=== PATIENT | female | born 2000 | race Hispanic/Latino ===

== ENCOUNTER 2020-08-17 12:24 | Emergency (ER) | payer OTHER ==
[~2020-08-17] VITALS: Ht 157.5 cm; Wt 70.5 kg
[2020-08-17 17:28] LABS: HEMATOCRIT 42.4 % (36.0-47.0); HEMOGLOBIN 14.4 g/dl (12.0-15.5); MEAN CORPUSCULAR VOLUME 94.2 fl (80.0-96.0); PLATELET COUNT, AUTOMATED 305 10^3/uL (150-450); WHITE BLOOD COUNT 8.6 10^3/uL (4.0-10.0)
[2020-08-17 17:48] LABS: HCG, SERUM QUALITATIVE NEGATIVE (NEGATIVE)
[2020-08-17 17:58] LABS: AMPHETAMINES LEVEL URINE NEGATIVE (NEGATIVE); BARBITURATES URINE NEGATIVE (NEGATIVE); BENZODIAZEPINES URINE NEGATIVE (NEGATIVE); CANNABINOIDS URINE NEGATIVE (NEGATIVE); COCAINE METABOLITE URINE NEGATIVE (NEGATIVE); METHADONE URINE NEGATIVE (NEGATIVE); OPIATES URINE NEGATIVE (NEGATIVE); PHENCYCLIDINE URINE NEGATIVE (NEGATIVE)
[2020-08-17 18:00] LABS: RSV AMPLIFICATION NEGATIVE (NEGATIVE)
[2020-08-17 18:45] LABS: ACETAMINOPHEN LEVEL < 2.0 UG/ML (10.0-30.0); ALBUMIN 4.1 GM/DL (3.2-5.2); ALT/SGPT 30 U/L (12-78); BILIRUBIN,DIRECT 0.1 MG/DL (0.0-0.2); BILIRUBIN,TOTAL 0.3 MG/DL (0.2-1.0); BLOOD UREA NITROGEN 9 MG/DL (7-18); CARBON DIOXIDE LEVEL 25 MEQ/L (21-32); CHLORIDE LEVEL 108 MEQ/L (98-107); CREATININE FOR GFR 0.73 MG/DL (0.55-1.30); ETHYL ALCOHOL (ETHANOL) < 0.003 % (0.000-0.010); GLUCOSE, FASTING 89 MG/DL (70-100); SALICYLATE LEVEL < 1.7 MG/DL (5.0-30.0); SODIUM LEVEL 141 MEQ/L (136-145)
[2020-08-17 19:19] VITALS: BP 129/67
== END 2020-08-17 19:15 | disposition home or self-care (01) ==
LOC: M ED 12:24
DX: F32.9 Major depressive disorder, single episode, unspecified (principal); F43.10 Post-traumatic stress disorder, unspecified; F41.9 Anxiety disorder, unspecified

== ENCOUNTER 2021-01-04 12:06 | Emergency (ER) | payer OTHER ==
[~2021-01-04] VITALS: Ht 157.5 cm; Wt 74.5 kg
[2021-01-04] MEDS ORDERED: NEXP1IMP SC (15:01)
[2021-01-04 15:06] LABS: BASO # 0.1 10^3/uL (0.0-0.2); BASO % 0.5 % (0.0-1.0); EOS # 0.1 10^3/uL (0.0-0.5); EOS % 0.8 % (0.0-3.0); HEMATOCRIT 44.2 % (36.0-47.0); HEMOGLOBIN 14.7 g/dl (12.0-15.5); LYMPH # 2.2 10^3/uL (1.5-5.0); LYMPH % 22.1 % (24.0-44.0); MEAN CORPUSCULAR HEMOGLOBIN 31.7 pg (27.0-33.0); MEAN CORPUSCULAR HGB CONC 33.3 g/dl (32.0-36.5); MEAN CORPUSCULAR VOLUME 95.3 fl (80.0-96.0); MONO # 0.6 10^3/uL (0.0-0.8); MONO % 5.9 % (2.0-8.0); NEUTROPHILS % 70.2 % (36.0-66.0); PLATELET COUNT, AUTOMATED 296 10^3/uL (150-450); RED BLOOD COUNT 4.64 10^6/uL (4.00-5.40); WHITE BLOOD COUNT 9.9 10^3/uL (4.0-10.0)
[2021-01-04 15:31] LABS: HCG, SERUM QUALITATIVE NEGATIVE (NEGATIVE)
[2021-01-04 15:33] LABS: ALT/SGPT 38 U/L (12-78); BILIRUBIN,DIRECT 0.1 MG/DL (0.0-0.2); BILIRUBIN,TOTAL 0.4 MG/DL (0.2-1.0); BLOOD UREA NITROGEN 8 MG/DL (7-18); CALCIUM LEVEL 9.1 MG/DL (8.5-10.1); CARBON DIOXIDE LEVEL 27 MEQ/L (21-32); CHLORIDE LEVEL 109 MEQ/L (98-107); CREATININE FOR GFR 0.64 MG/DL (0.55-1.30); GLUCOSE, FASTING 85 MG/DL (70-100); LIPASE 131 U/L (73-393); POTASSIUM SERUM 3.8 MEQ/L (3.5-5.1); SODIUM LEVEL 140 MEQ/L (136-145); TOTAL PROTEIN 7.1 GM/DL (6.4-8.2)
[2021-01-04] MEDS ORDERED: ONDANSETRON 4MG/2ML VIAL IV ONE (16:15)
--- NOTE | 2021-01-04 16:58 | REP ---
INDICATION: cramping llq pain. COMPARISON: None. TECHNIQUE: Trans abdominal ultrasound FINDINGS: The uterus measures 6.9 x 3.3 x 4.4 cm. The echo pattern is normal. Endometrial stripe measures 5 mm. Right ovary 2.8 x 2.7 x 2 cm. 1.5 cm follicular cyst. Left ovary 2.1 x 1.8 x 1 cm. Normal echo pattern. No fluid in the cul-de-sac. IMPRESSION: Normal pelvic ultrasound <Electronically signed by Mychal Cheema > 01/04/21 [id number]
[2021-01-04] MEDS ORDERED: ISOVUE-370 76% 100ML VIAL As Ordered ONE (17:32)
--- NOTE | 2021-01-04 18:26 | REPVR ---
PROCEDURE INFORMATION: Exam: CT Abdomen And Pelvis With Contrast Exam date and time: 01/04/2021 5:26 PM Age: 20 years old Clinical indication: Abdominal pain; Additional info: Lower abd pain llq TECHNIQUE: Imaging protocol: Computed tomography of the abdomen and pelvis with contrast. Radiation optimization: All CT scans at this facility use at least one of these dose optimization techniques: automated exposure control; mA and/or kV adjustment per patient size (includes targeted exams where dose is matched to clinical indication); or iterative reconstruction. Contrast material: ISOVUE 370; Contrast volume: 100 ml; Contrast route: INTRAVENOUS (IV); COMPARISON: US PELVIC NON-OB COMPLETE 01/04/2021 4:34 PM FINDINGS: Lungs: Included lung bases are clear. Liver: Probable minimal diffuse fatty liver change. Gallbladder and bile ducts: Normal. No calcified stones. No ductal dilation. Pancreas: Normal. No ductal dilation. Spleen: Normal. No splenomegaly. Adrenal glands: Normal. No mass. Kidneys and ureters: Normal. No hydronephrosis. Stomach and bowel: There is no bowel dilatation to indicate obstruction. No pneumatosis. Appendix: No evidence of appendicitis. Intraperitoneal space: Unremarkable. No free air. No significant fluid collection. Vasculature: Unremarkable. No abdominal aortic aneurysm. Lymph nodes: Small nonenlarged bilateral inguinal lymph nodes. Urinary bladder: Unremarkable as visualized. Reproductive: Incidentally noted 2.5 cm dominant follicle in the right ovary which is simple in appearance with no nodular enhancement or calcification. No further imaging is recommended. (Reference: Mistry) Bones/joints: No acute osseous abnormality. No concerning osseous lesion. Soft tissues: Stranding and soft tissue density in the anterior abdominal wall, more pronounced in the infraumbilical region where this extends across midline with adjacent minimal fat stranding, likely changes from liposuction. No rim enhancing fluid collection is identified in the anterior abdominal wall, but the presumed scarring or inflammatory change versus less likely infectious change measures up to 10 mm in thickness as on series 201, image 92. IMPRESSION: 1. No acute intra-abdominal findings. 2. Stranding and soft tissue density in the anterior abdominal wall particularly in the infraumbilical region where this extends across midline with adjacent minimal fat stranding, likely scarring, inflammatory change or less likely infectious change after liposuction. However, no rim enhancing abscess or soft tissue air 3. Incidentally noted 2.5 cm dominant follicle in the right ovary. No further imaging is recommended. (Reference: Fede) References: Fede et al. Management of Incidental Adnexal Findings on CT and MRI: A White Paper of the ACR Incidental Findings Committee, J Am [employer] Radiol. 2019;17(2):248-254. Electronically signed by: Leslie Pineda On 01/04/2021 18:26:12 PM
[2021-01-04] MEDS ORDERED: BACT800T5 PO (18:45)
[2021-01-04] MEDS ORDERED: ONDA4TAB6 PO (18:46)
[2021-01-04 19:06] VITALS: BP 132/78
== END 2021-01-04 19:07 | disposition home or self-care (01) ==
LOC: M ED 12:06
DX: L03.311 Cellulitis of abdominal wall (principal); N83.01 Follicular cyst of right ovary
CPT/HCPCS: 74177; 76856; 80048; 80076; 81001; 83690; 84703; 85025; 96374; 99284; J2405; Q9967

== ENCOUNTER 2021-01-09 19:54 | Emergency (ER) | payer OTHER ==
[~2021-01-09] VITALS: Ht 157.5 cm; Wt 74.3 kg
[~2021-01-09 19:54] MED LIST: BACT800T5 PO; NEXP1IMP SC; ONDA4TAB6 PO
[2021-01-09 19:55] VITALS: BP 136/65
== END 2021-01-09 22:56 | disposition left against medical advice (07) ==
LOC: M ED 19:54
DX: Z53.21 Procedure and treatment not carried out due to patient leaving prior to being seen by health care provider (principal)

== ENCOUNTER 2021-01-10 10:20 | Emergency (ER) | payer OTHER ==
[~2021-01-10] VITALS: Ht 157.5 cm; Wt 74.7 kg
[2021-01-10 10:21] VITALS: BP 119/55
== END 2021-01-10 10:53 | disposition left against medical advice (07) ==
LOC: M ED 10:20
DX: Z53.21 Procedure and treatment not carried out due to patient leaving prior to being seen by health care provider (principal)